=== PATIENT | male | born 1955 | race Caucasian/White ===

== ENCOUNTER 2016-05-10 06:50 | Emergency (ER) | payer OTHER ==
[2016-05-10] MEDS ORDERED: METHYLPRED SOD SUCC 125 MG/2 ML VIAL ONE (07:19)
[2016-05-10] MEDS ORDERED: SODIUM CHLORIDE 0.9% 1,000 ML ONE ×2 (07:19→07:35)
[2016-05-10] MEDS ORDERED: KETOROLAC 30 MG/ML VIAL ONE (07:35)
[2016-05-10] MEDS ORDERED: NEB-ALBUTEROL 2.5 MG/3 ML INH ONE (07:42)
[2016-05-10] MEDS ORDERED: DUONEB INH ONE (07:42)
[2016-05-10] MEDS ORDERED: AZITHROMYCIN 500 MG VIAL IV ONE (08:42)
[2016-05-10] MEDS ORDERED: SODIUM CHLORIDE 0.9% 250 ML IV ONE (08:42)
[2016-05-10] MEDS ORDERED: CEFTRIAXONE 1 GM VIAL ONE (08:42)
[2016-05-10] MEDS ORDERED: SODIUM CHLORIDE 0.9% 200 ML IV ONE (08:42)
== END 2016-05-10 10:30 | disposition home or self-care (01) ==
LOC: ER 06:50
DX: J15.9 Unspecified bacterial pneumonia (principal)
CPT/HCPCS: 36415 ×2; 71010 ×2; 80053 ×2; 82553 ×2; 83880 ×2; 84484 ×2; 85025 ×2; 85610 ×2; 85730 ×2; 87804 ×2; 93005 ×2; 94640 ×2; 96361 ×2; 96365 ×2; 96367 ×2; 96375 ×2; 99284; J0696; J1885; J2930; J7050